=== PATIENT | female | born 1965 | race Caucasian/White ===

== ENCOUNTER → 2016-07-22 | Outpatient (CLI) | payer OTHER ==
[~2016-07-22] VITALS: Ht 177.8 cm; Wt 145.9 kg
[~2016-07-22] MED LIST: DO NOT ADM ANY ANTICOAGULANT DRUGS XX PRN; LEVO50TA4 PO; MULTTAB67 PO; PANT40TA3 PO; PROPOFOL 200 MG/20 ML AMP IV ONE; SUGAMMADEX SODIUM 200 MG/2 ML VIAL IV PUSH ONE; VITA100064 PO
[2016-07-22 10:02] VITALS: BP 153/98; PULSE 74; RESP 18; TEMP 98.1; O2SAT 97
[2016-07-22 13:37] VITALS: BP 140/80; PULSE 58; RESP 18; TEMP 97.4; O2SAT 100
--- NOTE | 2016-07-22 22:42 | EKG ---
Date Performed: 07/22/2016 Time Performed: 09:27:14 PTAGE: 51 years EKG: Sinus rhythm NORMAL ECG NO PREVIOUS TRACING DOCTOR: Antonietta Dunne Interpretating Date/Time 07/22/2016 22:41:10
== END ==
LOC: HOR 08:54
PROVIDERS: ATTEND Internal Medicine Gastroenterology
DX: Z01.818 Encounter for other preprocedural examination (principal); E66.01 Morbid (severe) obesity due to excess calories; Z68.42 Body mass index [BMI] 45.0-49.9, adult; K44.9 Diaphragmatic hernia without obstruction or gangrene; K29.60 Other gastritis without bleeding; K20.8 Other esophagitis; D64.9 Anemia, unspecified; R19.8 Other specified symptoms and signs involving the digestive system and abdomen; Z01.810 Encounter for preprocedural cardiovascular examination
CPT/HCPCS: 88305; 88312; 93005

== ENCOUNTER 2016-10-01 13:14 | Inpatient (IN) | payer OTHER ==
[~2016-10-01] VITALS: Ht 177.8 cm; Wt 141.0 kg
[~2016-10-01 13:14] MED LIST changes: -DO NOT ADM ANY ANTICOAGULANT DRUGS XX PRN; -PROPOFOL 200 MG/20 ML AMP IV ONE; -SUGAMMADEX SODIUM 200 MG/2 ML VIAL IV PUSH ONE
[2016-10-14] MEDS ORDERED: LACTATED RINGER'S 1000 ML IV PRN (06:30)
[2016-10-14] MEDS ORDERED: METOPROLOL TARTRATE 25 MG TAB PO PRN (06:30)
[2016-10-14] MEDS ORDERED: SODIUM CHLORID 0.9% 500 ML IV PRN (06:30)
[2016-10-14] MEDS ORDERED: INSULIN HUMAN REGULAR 1,000 UNITS/10 ML VIAL SQ PRN (06:30)
[2016-10-14] MEDS ORDERED: metroNIDAZOLE 500 MG INJ 100 ML IV SCH (06:30)
[2016-10-14] MEDS ORDERED: APREPITANT 40 MG CAP PO SCH (06:30)
[2016-10-14] MEDS ORDERED: SCOPOLAMINE 1.5 MG PATCH T-DERMAL SCH (06:30)
[2016-10-14] MEDS ORDERED: POVIDONE IODINE 5% (ANTISEPSIS KIT) 4 APPLICATIONS EACH NARE PRN (06:30)
[2016-10-14] MEDS ORDERED: ceFAZolin 2 GM PREMIX 50 ML IV SCH (06:30)
[2016-10-14] MEDS ORDERED: CHLORHEXIDINE GLUCONATE 2 % 1 PACK (2 CLOTHS) TOPICAL PRN (06:30)
[2016-10-14] MEDS ORDERED: ONDANSETRON HCL 4 MG/2 ML VIAL IV PUSH SCH (06:30)
[2016-10-14] MEDS ORDERED: ACETAMINOPHEN 1000 MG/100 ML VIAL IV SCH (06:30)
[2016-10-14 07:52] VITALS: BP 139/82; PULSE 75; RESP 20; TEMP 98.3; O2SAT 96
[2016-10-14] MEDS ORDERED: DEXAMETHASONE SOD PHOS 4 MG/ML VIAL ONE (09:48)
[2016-10-14] MEDS ORDERED: MIDAZOLAM HCL 2 MG/2 ML VIAL ONE (09:48)
[2016-10-14] MEDS ORDERED: BUPIVACAINE/EPINEPHRINE 0.25% 50 ML VIAL ONE (09:59)
[2016-10-14] MEDS ORDERED: BUPIVACAINE/EPINEPHRINE 0.25% PF 30 ML VIAL INFIL ONE ×2 (10:51→10:54)
[2016-10-14] MEDS ORDERED: METHYLENE BLUE 100 MG/10 ML VIAL IV ONE ×2 (10:51→10:54)
[2016-10-14] MEDS ORDERED: HYDROmorphone HCL PF 2 MG/ML VIAL ONE (11:09)
[2016-10-14] MEDS ORDERED: PROPOFOL 200 MG/20 ML AMP IV ONE (12:00)
[2016-10-14] MEDS ORDERED: NEOSTIGMINE 3 MG/3 ML SYR IV ONE (12:00)
[2016-10-14] MEDS ORDERED: ONDANSETRON HCL 4 MG/2 ML VIAL IV PUSH ONE (12:00)
[2016-10-14] MEDS ORDERED: LACTATED RINGER'S 1000 ML INJ 1,000 ML IV ONE (12:00)
[2016-10-14] MEDS: D5-1/2 NS + KCL 20 MEQ INJ 1,000 ML IV SCH ×3 (13:39→21:39)
[2016-10-14] MEDS ORDERED: SODIUM CHLORIDE 0.9% FLUSH 10 ML FLUSH IV FLUSH PRN (13:45)
[2016-10-14] MEDS ORDERED: NALOXONE HCL 0.4 MG/ML AMP IV PRN (13:45)
[2016-10-14] MEDS ORDERED: Post-op Orders (for Pharmacy) MISC OTHER ONE (13:45)
[2016-10-14] MEDS ORDERED: diphenhydrAMINE HCL 50 MG/ML VIAL IV PRN (13:45)
[2016-10-14] MEDS ORDERED: ACETAMINOPHEN 325MG/HYDROcodone 7.5MG/15ML UDC PO PRN ×2 (13:45)
[2016-10-14] MEDS ORDERED: diphenhydrAMINE HCL ELIXIR 12.5 MG/5 ML CUP PO PRN (13:45)
[2016-10-14] MEDS ORDERED: ONDANSETRON HCL 4 MG/2 ML VIAL IV PRN (13:45)
[2016-10-14] MEDS ORDERED: ENALAPRILAT 1.25 MG/ML VIAL IV PUSH PRN (13:45)
[2016-10-14] MEDS ORDERED: MORPHINE SULFATE 30 MG/30 ML PCA IV SCH (13:45)
[2016-10-14] MEDS: PCA - TOTAL MG MORPHINE DELIVERED PER SHIFT SCH ×2 (14:00→20:25)
[2016-10-14] MEDS ORDERED: fentaNYL CITRATE 250 MCG/5 ML AMP ONE (14:13)
[2016-10-14] MEDS ORDERED: DO NOT ADM ANY ANTICOAGULANT DRUGS PRN (14:30)
[2016-10-14] MEDS: METOCLOPRAMIDE HCL 10 MG/2 ML VIAL IV PUSH SCH ×2 (14:30→20:12)
[2016-10-14 15:51] VITALS: BP 135/63; PULSE 64; RESP 18; TEMP 98.1; O2SAT 100
[2016-10-14] MEDS: RESP: ALBUTEROL 2.5 MG/3 ML NEB (SCH) INH (16:00)
[2016-10-14] MEDS: metroNIDAZOLE 500 MG INJ 100 ML IV SCH (16:45)
[2016-10-14] MEDS: ENOXAPARIN SODIUM 40 MG/0.4 ML SYRINGE SQ SCH (17:57)
[2016-10-14 20:00] VITALS: BP 135/80; PULSE 82; RESP 20; TEMP 96.4; O2SAT 96
[2016-10-14] MEDS: SODIUM CHLORIDE 0.9% FLUSH 10 ML FLUSH IV FLUSH SCH (20:24)
[2016-10-15] VITALS (7 sets, daily range): BP systolic 129–142; BP diastolic 67–71; PULSE 65–76; RESP 16–20; TEMP 96.1–98.5; O2SAT 93–96
[2016-10-15] MEDS: RESP: ALBUTEROL 2.5 MG/3 ML NEB (SCH) INH ×5 (00:36→16:35)
[2016-10-15] MEDS: metroNIDAZOLE 500 MG INJ 100 ML IV SCH ×2 (02:29→07:59)
[2016-10-15] MEDS: METOCLOPRAMIDE HCL 10 MG/2 ML VIAL IV PUSH SCH ×2 (02:30→07:58)
[2016-10-15] MEDS: D5-1/2 NS + KCL 20 MEQ INJ 1,000 ML IV SCH ×4 (02:31→16:19)
[2016-10-15 04:17] LABS: AUTOMATED NEUTROPHIL # 7.1 TH/MM3 (1.8-7.7); BASOPHIL % 0.2 % (0.0-2.0); HEMATOCRIT 38.1 % (35.0-46.0); HEMO FLAGS DIFF FINAL; MEAN CELL VOLUME 86.5 FL (80.0-100.0); MEAN CORPUSCULAR HEMOGLOBIN 28.7 PG (27.0-34.0); MEAN CORPUSCULAR HGB CONC 33.2 % (32.0-36.0); MONO % 11.5 % (0.0-8.0); NEUT % 77.3 % (16.0-70.0); PLATELET COUNT 177 TH/MM3 (150-450); RED BLOOD COUNT 4.41 MIL/MM3 (4.00-5.30); RED CELL DISTRIBUTION WIDTH 13.1 % (11.6-17.2); WHITE BLOOD COUNT 9.2 TH/MM3 (4.0-11.0)
[2016-10-15 04:39] LABS: BICARBONATE 27.6 MEQ/L (21.0-32.0); MAGNESIUM 2.3 MG/DL (1.5-2.5)
[2016-10-15] MEDS: PCA - TOTAL MG MORPHINE DELIVERED PER SHIFT SCH ×2 (06:00→13:59)
[2016-10-15] MEDS: SODIUM CHLORIDE 0.9% FLUSH 10 ML FLUSH IV FLUSH SCH (07:59)
[2016-10-15] MEDS ORDERED: PANTOPRAZOLE SOD 40 MG DELAYED RELEASE TAB PO SCH (09:00)
[2016-10-15] MEDS ORDERED: LEVOTHYROXINE SODIUM 50 MCG TAB PO SCH (12:00)
[2016-10-15] MEDS ORDERED: METOCLOPRAMIDE HCL 10 MG/2 ML VIAL IV PUSH PRN (13:45)
--- NOTE | 2016-10-15 14:42 | HHI.PR ---
Subjective Subjective Notes 51yo female POD# RNY with laparoscopic esophageal hernia repair. Laying in bed in no acute distress. Tolerating fluids Objective Vitals/I&O Vital Signs Date Time Temp Pulse Resp B/P Pulse Ox O2 Delivery O2 Flow Rate FiO2 10/15/16 13:59 16 10/15/16 12:00 98.4 74 140/69 93 10/15/16 08:57 21 10/14/16 15:20 Nasal Cannula 3 Labs Laboratory Tests Test 10/15/16 03:29 White Blood Count 9.2 Red Blood Count 4.41 Hemoglobin 12.7 Hematocrit 38.1 Mean Corpuscular Volume 86.5 Mean Corpuscular Hemoglobin 28.7 Mean Corpuscular Hemoglobin 33.2 Concent Red Cell Distribution Width 13.1 Platelet Count 177 Mean Platelet Volume 9.9 Neutrophils (%) (Auto) 77.3 Lymphocytes (%) (Auto) 11.0 Monocytes (%) (Auto) 11.5 Eosinophils (%) (Auto) 0.0 Basophils (%) (Auto) 0.2 Neutrophils # (Auto) 7.1 Lymphocytes # (Auto) 1.0 Monocytes # (Auto) 1.1 Eosinophils # (Auto) 0.0 Basophils # (Auto) 0.0 CBC Comment DIFF FINAL Differential Comment Sodium Level 140 Potassium Level 4.0 Chloride Level 104 Carbon Dioxide Level 27.6 Anion Gap 8 Blood Urea Nitrogen 8 Creatinine 0.72 Estimat Glomerular Filtration 86 Rate Random Glucose 128 Calcium Level 8.4 Magnesium Level 2.3 Cardiovascular: Regular Lungs: Clear Abdomen: Post-op tenderness Extremities: Perfused Wound Wound : Wound Location: Abdomen Appearance: Clean & Dry A/P Assessment and Plan Remove ruffin Continue with frequent ambulation Continue to increase fluids as tolerated The exam, history, and the medical decision-making described in the above note were completed with the assistance of the mid-level provider. I reviewed and agree with the findings presented. I attest that I had a [id number]-[id number] encounter with the patient on the same day, and personally performed and documented my assessment and findings in the medical record. Discharge Planning D/C home later today LetyAnyajameson WERNER October 15, 2016 14:42 Raulito Ledezma MD October 21, 2016 09:35
[2016-10-15] MEDS: ENOXAPARIN SODIUM 40 MG/0.4 ML SYRINGE SQ SCH (18:00)
--- NOTE | 2016-11-17 12:18 | MP ---
cc: MARY LEDEZMA DATE OF : 1965 DATE OF SURGERY: 10/14/2016 PREOPERATIVE DIAGNOSIS: 1. Morbid obesity with a BMI of 43, complicated by hyperlipidemia, gastroesophageal reflux disease. 2. Large paraesophageal hernia. POSTOPERATIVE DIAGNOSIS: 1. Morbid obesity with a BMI of 43, complicated by hyperlipidemia, gastroesophageal reflux disease. 2. Large paraesophageal hernia. OPERATION: Da Wally assisted paraesophageal hernia repair, laparoscopic Manish-en-Y gastric bypass 100 cm Manish limb antegastric antecolic. SURGEON Mary Ledezma MD. ANESTHESIA General endotracheal anesthesia ESTIMATED BLOOD LOSS Scant FINDINGS Fatty liver, large paraesophageal hernia. SPECIMENS None COMPLICATIONS None PROCEDURE: The patient was brought to the operating room and placed on the operating table in supine position, bilateral sequential inflation device placed on lower extremities, general anesthesia instituted, antibiotics initiated. The abdomen was prepped and draped sterilely. A point 18-cm distal to the xiphoid in the midline anesthetized with 0.25% Marcaine with epinephrine. The skin incision was made, a 5-mm OptiView port placed under direct vision and pneumoperitoneum was created. Under direct vision a 5-mm left upper quadrant, 12-mm left upper quadrant, 12-mm right upper quadrant and 5-mm right upper quadrant ports were placed. Prior to placement of all ports, the skin and peritoneum were anesthetized with 0.25% Marcaine with epinephrine. The patient's omentum was lifted into the upper abdomen. It was split down the middle to create a path for the Manish limb. The ligament of Treitz was identified, a point 40 cm distal identified. The small bowel was divided in this region using an [place] Flex stapler vascular load reinforced with SeamGuard. The distal segment was brought up for a distance of 100 cm, enterotomy created in this region, enterotomy in the biliopancreatic limb and a gvio-am-apda stapled jejunojejunostomy created in the usual manner. The mesenteric defect at the jejunojejunostomy was closed with 2-0 Surgidac suture in a running manner. The patient was placed in reverse Trendelenburg position with the left side up. The Anastasia-Flex retractor was placed. The left lobe of the liver was retracted. The angle of His was taken down bluntly, a point 5 cm distal to the GE junction along the lesser curve identified, the lesser sac entered using blunt dissection. The stomach was partitioned horizontally using an [place]-Flex stapler blue load, an additional firing taken directed towards the angle of His to completely divide the stomach. A gastrotomy created in the new stomach, enterotomy in the Manish limb and gastrojejunostomy created, stomal opening of 2 cm. An 18-Wallisian OG tube was placed across the anastomosis, the defect then closed in two layers of running 2-0 Vicryl. Prior to placement of the second layer, methylene blue instilled through the OG tube. There was no evidence of extravasation. Evicel was then placed over the gastrojejunostomy, jejunojejunostomy and all staple lines. The operative field inspected and hemostasis was present. The CO2 was released, all ports were removed. All skin incisions were closed with 4-0 Monocryl. The abdominal wall was cleaned and a sterile dressing placed. The patient was awakened and taken to the recovery room. MD GERARDO Dickens/NAKIA /11:15 AM /12:19 PM
--- NOTE | 2016-11-30 12:19 | MP ---
cc: MARY LEDEZMA DATE OF SURGERY: 10/14/2016 DATE OF : 1965 PREOPERATIVE DIAGNOSIS 1. Morbid obesity with a BMI of 44. 2. Large paraesophageal hernia. POSTOPERATIVE DIAGNOSIS 1. Morbid obesity with a BMI of 44. 2. Large paraesophageal hernia. PROCEDURE 1. Robot-assisted laparoscopic paraesophageal hernia repair. 2. Laparoscopic Manish-en-Y gastric bypass, 100 cm Manish limb, antegastric, antecolic SURGEON Mary Ledezma [employer] SURGEON Carlyle Greer ANESTHESIA General endotracheal. ESTIMATED BLOOD LOSS Scant. FINDINGS Large paraesophageal hernia. SPECIMENS None. COMPLICATIONS None. OPERATION The patient was brought into the operating room and placed on the operating table in a supine position. A bilateral sequential inflation device was placed on the lower extremities. General anesthesia was instituted. Antibiotics were initiated. The abdomen was prepped and draped sterilely. A point 18 cm distal from the xiphoid in the midline was anesthetized with 0.25% Marcaine with epinephrine. A skin incision was made. A 12 mm OptiView port was placed under direct vision and pneumoperitoneum created. Under direct vision a 5 mm left upper quadrant, 8 mm robotic left upper quadrant, 8 mm robotic port in the right upper quadrant and a 5 mm port placed in the right upper quadrant. Prior to placement of all ports the skin and peritoneum were anesthetized with 0.25% Marcaine with epinephrine. The patient was placed in reverse Trendelenburg position left side up. A Anastasia-Flex retractor was placed. The left lobe of the liver was retracted. Findings as above. Three 0 silk sutures were placed into the abdominal cavity as well as a Gus drain and Ray-Isaiah gauze. At this point the laparoscopic tower was removed from the patient's bedside and a da Wally robot was docked at the patient's bedside. I then broke scrub and went to the console. The hepatogastric ligament was then opened. The stomach was retracted into the abdominal cavity. The left crura of the diaphragm was dissected inferiorly. A [place] drain was placed around the stomach to retract it into the abdominal cavity further. The crura of the diaphragm was dissected anteriorly and posteriorly both left and right. The hernia sac was retracted into the abdominal cavity. The hernia sac was excised. The GE junction was mobilized into the abdominal cavity, dissected out the distal esophagus in the mediastinum. The crura of the diaphragm was approximated with 0 silk suture in a [id number]-[id number]-[id number] manner. Three interrupted stitches were placed inferiorly. The da Wally robot was then undocked. The laparoscopic tower was connected brought back to bedside. The gus and gauze was removed from the abdominal cavity Attention was focused on performing the laparoscopic Manish-en-Y gastric bypass. The patient's omentum was lifted into the upper abdomen. It was split down the middle to create a path for the Manish limb. The ligament of Treitz was identified, a point 40 cm distal identified. The small bowel was divided in this region using an [place] Flex stapler vascular load reinforced with SeamGuard. The distal segment was brought up for a distance of 100 cm, enterotomy created in this region, enterotomy in the biliopancreatic limb and a [id number]-cb-pkhj stapled jejunojejunostomy created in the usual manner. The mesenteric defect at the jejunojejunostomy was closed with 2-0 Surgidac suture in a running manner. The patient was placed in reverse Trendelenburg position with the left side up. The Anastasia-Flex retractor was placed. The left lobe of the liver was retracted. The angle of His was taken down bluntly, a point 5 cm distal to the GE junction along the lesser curve identified, the lesser sac entered using blunt dissection. The stomach was partitioned horizontally using an [place]-Flex stapler blue load, an additional firing taken directed towards the angle of His to completely divide the stomach. A gastrotomy created in the new stomach, enterotomy in the Manish limb and gastrojejunostomy created, stomal opening of 2 cm. An 18-Bulgarian OG tube was placed across the anastomosis, the defect then closed in two layers of running 2-0 Vicryl. Prior to placement of the second layer, methylene blue instilled through the OG tube. There was no evidence of extravasation. Evicel was then placed over the gastrojejunostomy, jejunojejunostomy and all staple lines. The operative field inspected and hemostasis was present. The CO2 was released, all ports were removed. All skin incisions were closed with 4-0 Monocryl. The abdominal wall was cleaned and a sterile dressing placed. The patient was awakened and taken to the recovery room. All instrument and sponge counts were reported as correct at the end of the procedure MD FRANCOISE Dickens /8:07 AM /12:09 PM MTDEmilia
== END 2016-10-15 19:00 | disposition home or self-care (01) | DRG 327 ==
LOC: HSDI 10-14 05:20 → N07A 10-14 15:38
PROVIDERS: ADMIT Surgery; ATTEND Surgery
PROC: 0D164ZA Bypass Stomach to Jejunum, Percutaneous Endoscopic Approach (ICD-10-PCS; 2016-10-14)
PROC: 8E0W4CZ Robotic Assisted Procedure of Trunk Region, Percutaneous Endoscopic Approach (ICD-10-PCS; 2016-10-14)
PROC: 0BQS4ZZ (ICD-10-PCS; principal; 2016-10-14 10:05)
PROC: 0BQR4ZZ (ICD-10-PCS; 2016-10-14 10:05)
DX: K21.9 Gastro-esophageal reflux disease without esophagitis (principal); Z68.41 Body mass index [BMI] 40.0-44.9, adult; K76.0 Fatty (change of) liver, not elsewhere classified; E66.01 Morbid (severe) obesity due to excess calories; K44.9 Diaphragmatic hernia without obstruction or gangrene; E78.2 Mixed hyperlipidemia; R73.09 Other abnormal glucose; E03.9 Hypothyroidism, unspecified
CPT/HCPCS: 80048; 83735; 85025; 94150; 94640; 94664; J0131; J0690; J1100; J1170; J1650; J2250; J2270; J2405; J2710; J2765; J3010; J3480; J7120; J7613; J8501